=== PATIENT | male | born 1970 | race Caucasian/White ===

== ENCOUNTER → 2021-02-13 | Outpatient (CLI) | payer BC ==
[2021-02-13 11:09] LABS: MEAN CORP HGB 29.3 pg (26-34)
[2021-02-13 11:39] LABS: CALCIUM 8.9 mg/dL (8.4-10.5); CARBON DIOXIDE 29.3 mmol/L (20.0-32)
[2021-02-14 07:16] LABS: ESTRADIOL 11.1 pg/mL (7.6-42.6); FOLLICLE STIMULATING HORMONE 9.3 mIU/mL (1.5-12.4)
== END | disposition home or self-care (01) ==
LOC: LAB 10:53
DX: Z00.01 Encounter for general adult medical examination with abnormal findings (principal)
CPT/HCPCS: 36415; 80053; 80061; 82306; 82670; 83001; 84153; 84403; 84436; 84443; 84481; 85027; 86376